=== PATIENT | female | born 1950 | race Caucasian/White ===

== ENCOUNTER 2024-06-13 09:11 | Day surgery (SDC) | payer MEDICARE, SELFPAY ==
--- OUTSIDE RECORDS SUMMARY | 2024-06-12 14:36 | XMS_ITS ---
Author Organization [facility] Address Unknown Problems Problem Status Start Date End Date ANXIETY DISORDER, UNSPECIFIE D (Primary) (F41.9 - ICD-10-CM) ACTIVE 01/28/2023 ACUTE POSTHEMORRHAGIC ANEMIA (Primary) (D62 - ICD-10-CM) RESOLVED 08/19/2022 01/15/2023 HISTORY OF FALLING (Z91.81 - ICD-10-CM) ACTIVE 0 08/19/2022 PRESSURE ULCER OF SACRAL REG ION, UNSPECIFIED STAGE (L89.159 - ICD-10-CM) RESOLVED 03/31/2023 04/18/2023 MUSCLE WEAKNESS (GENERALIZED) (M62.81 - ICD-10-CM) ACT JOSEPH 08/19/2022 DIFFICULTY IN WALKING, NOT E LSEWHERE CLASSIFIED (R26.2 - ICD-10-CM) ACTIVE 04/04/2023 UNSPECIFIED DEMENTIA, SEVERE , WITHOUT BEHAVIORAL DISTURBANCE, PSYCHOTIC DISTURBANCE, MOOD DISTURBANCE, AND ANXIETY (F03.C0 - ICD-10-CM) ACTIVE 04/18/2023 PRESSURE ULCER OF SACRAL REG ION, UNSPECIFIED STAGE (L89.159 - ICD-10-CM) RESOLVED 03/31/2023 04/18/2023 SOLITARY PULMONARY NODULE (R91.1 - ICD-10-CM) ACTIVE 02/16/2023 VASCULAR DEMENTIA, UNSPECIFI ED SEVERITY, WITH PSYCHOTIC DISTURBANCE (F01.52 - ICD-10-CM) ACTIVE 01/28/2023 DYSPHAGIA, ORAL PHASE (R13.11 - ICD-10-CM) ACTIVE 11/24/2022 UNSPECIFIED CATARACT (H26.9 - ICD-10-CM) ACTIVE 11/07/2022 DISSECTION OF THORACIC AORTA , UNSPECIFIED (I71.019 - ICD-10-CM) ACTIVE 08/19/2022 UNSTEADINESS ON FEET (R26.81 - ICD-10-CM) ACTIVE 08/19/2022 ALTERED MENTAL STATUS, UNSPE CIFIED (R41.82 - ICD-10-CM) ACTIVE 08/19/2022 OTHER SPECIFIED DISORDERS OF ADRENAL GLAND (E27.8 - ICD-10-CM) ACTIVE 08/19/2022 UNSPECIFIED ABNORMALITIES OF GAIT AND MOBILITY (R26.9 - ICD-10-CM) ACTIVE 08/19/2022 HYPOTHERMIA, NOT ASSOCIATED WITH LOW ENVIRONMENTAL TEMPERATURE (R68.0 - ICD-10-CM) RESOLVED 08/19/2022 02/17/20 HYPEROSMOLALITY AND HYPERNATREMIA (E87.0 - ICD-10-CM) RESOLVED 08/19/2022 02/16/2023 HYPOKALEMIA (E87.6 - ICD-10-CM) RESOLVED 02/16/2023 HYPOTENSION, UNSPECIFIED (I95.9 - ICD-10-CM) RESOLVED 08/19/2022 02/16/2023 OTHER ACUTE KIDNEY FAILURE (N17.8 - ICD-10-CM) RESOLVE D 08/19/2022 02/16/2023 HYPOMAGNESEMIA (E83.42 - ICD-10-CM) RESOLVED 08/1902/16/2023 DEHYDRATION (E86.0 - ICD-10-CM) RESOLVED 02/16/2023 PRESSURE ULCER OF SACRAL REG ION, UNSPECIFIED STAGE (L89.159 - ICD-10-CM) RESOLVED 08/19/2022 02/16/2023 ABNORMAL FINDINGS ON DIAGNOS TIC IMAGING OF LIVER AND BILIARY TRACT (R93.2 - ICD-10-CM) RESOLVED 08/19/20222023 OTHER ESOPHAGITIS WITHOUT BL EEDING (K20.80 - ICD-10-CM) RESOLVED 08/19/2022 04/18/2023 OTHER SYMPTOMS AND SIGNS INV OLVING COGNITIVE FUNCTIONS AND AWARENESS (R41.89 - ICD-10-CM) ACTIVE 08/19/2022 PERSONAL HISTORY OF PULMONAR Y EMBOLISM (Z86.711 - ICD-10-CM) RESOLVED 08/19/2022 05/19/2023 Encounters Encounter Performer Performer Role Encounter Diagnoses Location Date Discharge - Discharged / Transferred to [facility] - shelter [facility] 08/19/2022 07:46 pm EDT - 08/10/2023 01:22 pm EDT Immunizations Vaccine Date Influenza 02/08/2023 11:30 am EDT TB 2 Step Mantoux Skin Test 08/30/2022 0 5:00 pm EDT Prevnar 20 Pneumococcal conjugate (PCV20 ) 05/31/2023 10:31 am EST SARS-COV-2 (COVID-19 BOOSTER) 03/24/2023 10:00 am EST Social History
--- OUTSIDE RECORDS SUMMARY | 2024-06-12 14:36 | XMS_ITS | Clinical Summary ---
Author Organization [facility] Facility Address [address] [place] [address] Care Team Providers Care Industrial Chemist Name Role Phone Unavailable Primary Care Provider Unavailabl e Social History Tobacco Use Types Packs/Day Years Used Date Smoking Tobacco: Never Assessed Comments Unknown Sex and Gender Information Value Date Recorded Sex Assigned at Not on file Legal Sex Female 10:43 AM EDT Gender Identity Not on file Sexual Orientation Not on file Plan of Treatment Health Maintenance Due Date Last Done Comments Breast Cancer Screening 1950 Colorectal Cancer Screening: Annual FOBT 2000 Colorectal Cancer Screening: Colonoscopy 2000 Colorectal Cancer Screening: Sigmoidoscopy 2000 Pneumococcal Vaccine: 65+ Ye ars (1 of 1 - PCV) 2016 Influenza Vaccine (#1) 2023 Hepatitis B Vaccine Aged Out No longe r eligible based on patient's age to complete this topic Insurance AETNA AETNA
--- OUTSIDE RECORDS SUMMARY | 2024-06-12 14:36 | XMS_ITS ---
Author Name [facility] Organization Unknown Results Test Name/Text Value Interpretation Date Range Source ICD-10 CODES Normal [id number] [facility] UCONNPATH LAB AP GROSS DESCRIPTION Received in formalin. Dimensions 3 x 3 x 4 mm, and submitted in 1 cassette. Also received is a vial of tissue transport medium (Channel M) containing a biopsy specimen measuring 3 x 3 x 2 mm. Tissue was washed in phosphate buffered saline and then embedded in OCT for immunofluorescent studies. Tissue was frozen, cut at 5 microns, and stained with fluorescein-labeled antibody to human IgG, IgM, IgA, C3 and fibrinogen. Normal [facility] LAB AP CLINICAL INFORMATION Scattered pink macules and papules with scale on face, back, grouping of small pink macules without scale on left distal leg, and scattered pink macules and papules with scale on face, back, grouping of small pink macules without scale on left distal leg, no lesions on mucosal surfaces, no lesions on palms; dermatitis unspecified vs hypersensitivity reaction vs pemphigus vulgaris Normal [facility]
--- NOTE | ~2024-06-13 | FL_ITS ---
FLUOROSCOPIC GUIDED LUMBAR PUNCTURE INDICATION: Cerebellar ataxia TECHNIQUE: Risks and benefits and possible complications were discussed with the patient and her guardian and the consent form was signed. Patient was placed prone on the fluoroscopy table. The back was prepped and draped in routine sterile fashion. Betadine was used as a skin antiseptic. Utilizing fluoroscopic guidance, the L2-3 level was accessed with a 22 gauge Long spinal needle and clear CSF fluid obtained. Opening pressure was 10 cm H2O. 8 cc of fluid was sent for analysis. The needle was removed without immediate complications. Total fluoroscopy time: 0.6 min FL/FL guided lumbar puncture LP IMPRESSION: Successful fluoroscopic guided lumbar puncture at L2-L3. This procedure was performed by Nirmal Lopez PA-C and supervised by Dr. Day. Electronically signed by: Andrew Day MD 06/13/2024 04:15 PM [facility] [place]
[2024-06-13 10:42] VITALS: BMI 28.3
[2024-06-13 11:55] VITALS: BP 121/76; PULSE 53; RESP 16; TEMP 36.8; O2SAT 97
[2024-06-13 12:25] VITALS: BP 119/70; PULSE 60; RESP 16; O2SAT 95
[2024-06-13 12:40] VITALS: BP 125/70; PULSE 57; RESP 16; TEMP 36.9; O2SAT 95
[2024-06-13 12:45] LABS: CSF Appearance Clear, Colorless; CSF Tube # 1
[2024-06-13 12:56] LABS: Glucose CSF 60 mg/dL; Total Protein CSF 45.1 mg/dL (15-45)
[2024-06-13 14:10] LABS: Appearance CSF CLEAR; CSF Tube # 4; Color CSF COLORLESS; Lymphocytes CSF 100 %; Red Blood Cell CSF 0 MM*3; White Blood Cell CSF 2 MM*3
== END 2024-06-13 12:53 | disposition home or self-care (01) ==
PROVIDERS: Physician Assistant Surgical; Visit Provider Psychiatry & Neurology Neurology
PROC: 009U3ZZ Drainage of Spinal Canal, Percutaneous Approach (ICD-10-PCS; CPT 62270; principal; 2024-06-13 11:00)
DX: G11.9 Hereditary ataxia, unspecified (principal); G32.81 Cerebellar ataxia in diseases classified elsewhere; F01.50 Vascular dementia, unspecified severity, without behavioral disturbance, psychotic disturbance, mood disturbance, and anxiety; R83.6 Abnormal cytological findings in cerebrospinal fluid; Z99.3 Dependence on wheelchair; R32 Unspecified urinary incontinence; Z87.440 Personal history of urinary (tract) infections; Z86.19 Personal history of other infectious and parasitic diseases; Z79.01 Long term (current) use of anticoagulants; Z79.899 Other long term (current) drug therapy
CPT/HCPCS: 62328; 82945; 84157; 87015; 87070; 87205; 89051; J2003; Q9967

== ENCOUNTER → 2024-06-13 11:20 | Outpatient (BNV) | payer MEDICARE, SELFPAY | PROVIDERS: Visit Provider Physician Assistant Surgical | DX: F01.50 Vascular dementia, unspecified severity, without behavioral disturbance, psychotic disturbance, mood disturbance, and anxiety (principal); G32.81 Cerebellar ataxia in diseases classified elsewhere | CPT/HCPCS: 62328 ==

== ENCOUNTER 2025-04-09 10:53 | Outpatient (AMB) | payer MEDICARE, SELFPAY ==
--- NOTE | 2025-04-09 11:23 | MHC.OFFVIS ---
Intake Visit Reasons: 6 months dementia Accompanied by: Family/Other Allergies No Known Allergies Allergy (Verified 04/09/25 11:30) Medication List - Last Reconciled 04/09/25 by Corrie Devi CNP apixaban (Eliquis) 5 mg PO BID atorvastatin 10 mg PO DAILY mirtazapine 15 mg PO BEDTIME pantoprazole 40 mg PO BID HPI Comments Details: She was doing okay. She was in assisted living memory care unit. She was working with PT and OT about 3x/week. Transfers with 1 assist, no falls. Memory has been stable. Sleep was okay. Mood was okay. Gets PT and OT, walks on parallel bars about 10 steps. Transfers with 1 assist. Needs help with showering. She started with a gait problem around 05/2022 when she started using a walker. Previously, had been in and out of nursing facilities and rehabilitation. She developed a UTI and shingles infection in 12/2023, and lost the ability to walk since then.?She initially appeared to have significant dementia, but seems much improved since 08/08/24 visit. She also has urinary incontinence. 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 Atrial fibrillation AAA (abdominal aortic aneurysm) TIA (transient ischemic attack) Vascular dementia Surgical History (Updated 06/13/24 @ 10:42 by Mabel Wilkins RN) S/P LASIK surgery of both eyes Review of Systems Const Denies chills, Denies daytime sleepiness, Denies difficulty sleeping, Denies fatigue, Denies fever(s), Denies frequent falls, Denies headache(s), Denies increased appetite, Denies poor appetite, Denies snoring, Denies weakness, Denies weight gain and Denies weight loss Eyes Denies loss of vision ENT Denies vertigo, Denies dizziness, Denies headache(s) and Denies neck pain Card Denies chest pain at rest, Denies chest pain with activity, Denies syncope, Denies leg edema, Denies palpitations, Denies dyspnea and Denies dyspnea on exertion Resp Denies cough, Denies dyspnea, Denies dyspnea on exertion and Denies snoring GI Denies abdominal pain, Denies constipation, Denies heartburn, Denies diarrhea and Denies nausea Denies urinary frequency, Reports urinary incontinence and Denies urinary urgency Musc Reports abnormal gait (balance difficulty), Denies back pain, Denies myalgias, Denies arthralgias, Denies neck pain, Denies numbness and Denies tingling Neuro Reports abnormal gait (balance difficulty), Denies vertigo, Denies dizziness, Denies syncope, Denies frequent falls, Denies headache(s), Denies lack of coordination, Denies loss of vision, Denies memory loss, Denies numbness, Denies Other visual disturbances, Denies restless legs, Denies seizure-like activity, Denies tingling, Denies paresthesias, Denies tremor(s) and Denies weakness Psych Denies anxiety, Denies depression, Denies auditory hallucinations, Denies memory loss and Denies visual hallucinations Endo Denies fatigue and Denies palpitations Physical Exam Const Other: General Appearance:? normal, in no acute distress. Heart:? S1, S2 normal, no murmurs. Lungs:? clear anteriorly and posteriorly. Musculoskeletal:? normal. Extremities:? no edema. Psych:? alert, as below. Neuro Other: Abnormal Neurological Findings:?Marked appendicular ataxia LE > UE. Wheelchair bound. Downward nystagmus on lateral gaze. Mental Status: alert, as below. Cranial Nerves: Pupils are equal, round, and reactive to light. External ocular muscles are intact with downward nystagmus on lateral gaze. Visual hoff are full, slight bilateral proptosis and lid retraction. Face is symmetrical, no facial weakness or droop. Facial sensations are normal. Tongue protrudes in midline. Palate elevates symmetrically. Shoulder shrugging is normal Motor Examination: Normal muscle tone, bulk and strength. No atrophy or fasciculations. No drift of the extended upper extremities. DTR 2+. Plantars are flexor. Sensory Exam: Normal light touch, temperature, pinprick, vibration, and joint-position sensations. Rhomberg sign is absent. Coordination: Marked ataxia. FTN, mbzf-guuh-zuel, JIMMIE clearly abnormal with significant dysmetria or past pointing. Gait Exam: Wheelchair bound, unable to stand unsupported or walk. Cerebellar Signs: Ifpqcy-[id number] with moderate dysmetria and dlvc-ng-hfea with marked dysmetria. Extrapyramidal System: No tremor, rigidity with normal facial expressions. No bradykinesia. No bradyphrenia. Normal arm swing and posture. No propulsion or retropulsion. Speech: Normal. MMSE Level of Consciousness: Alert. Orientation: Knows correct year, month, date, and season. Not day. Knows correct city, and state. Not county. Knows correct location and floor. Registration: Able to register 3 objects. Attention: Serial 7's performed accurately to 93. Recall: Able to recall 2 out of 3 objects. Language: Normal spontaneous speech, fluency, repetition, naming, comprehension, reading, and writing. Total Score: 23/30. Results Reviewed Results Reviewed: 03/18/24 MRI reviewed: shows atrophy and white matter microvacsular changes. Profound cerebellar atrophy especially vermian Spinal fluid was normal. Assessment & Plan Assessment & Plan (1) Cerebellar ataxia: Code(s): G11.9 - Hereditary ataxia, unspecified Category: Medical Plan: Continue PT/OT. (2) Vascular dementia: Code(s): F01.50 - Vascular dementia, unspecified severity, without behavioral disturbance, psychotic disturbance, mood disturbance, and anxiety Category: Medical Qualifiers: Dementia severity: unspecified severity Dementia behavioral or psychological symptom: unspecified whether behavioral, psychotic, or mood disturbance or anxiety Qualified Code(s): F01.50 - Vascular dementia, unspecified severity, without behavioral disturbance, psychotic disturbance, mood disturbance, and anxiety Plan Follow up in 6 months or sooner as needed. Coding Level of Care Code Est Pt Level 4 (29323) Diagnoses Cerebellar ataxia G11.9 Vascular dementia, unspecified dementia severity, unspecified whether behavioral, psychotic, or mood disturbance or anxiety F01.50 Dementia severity: unspecified severity Dementia behavioral or psychological symptom: unspecified whether behavioral, psychotic, or mood disturbance or anxiety
--- OUTSIDE RECORDS SUMMARY | 2025-04-09 12:14 | XMS_ITS | Clinical Summary ---
Author Organization [facility] Facility Address [address] [place] [address] Care Team Providers Care Maintenance Of Way Clerk Name Role Phone Unavailable Primary Care Provider [...] Colorectal Cancer Screening: Sigmoidoscopy 2000 Pneumococcal Vaccine: 50+ Ye ars (1 of 1 - PCV) 2001 Influenza Vaccine (#1) 2024 Hepatitis B Vaccine Aged Out No longe r eligible based on patient's age to complete this topic Insurance Aetna Commercial Aetna Commercial
--- OUTSIDE RECORDS SUMMARY | 2025-04-09 12:14 | XMS_ITS ---
Author Organization [facility] Care Team Providers Care Electronics Detail Draftsperson Name Role Phone Qi Claudio Unavailable Unavailable Niraj Mobley Unavailable Unavailable Gaye Alonso Unavailable Unavailable Winston Mcleod Unavailable Unavailable Michelle Schwarz Unavailable Unavailable Jese Duke Unavailable Unavailable Allergies and adverse reactions No Known Allergies Care Team Name Role Address Phone Organization Dates Niraj Mobley PCP [address], [place], [address], [place] (Office): [facility] 08/19/2022 - 08/10/2023 Qi Claudio [address] [facility], [place], [address], [place] (Office): [facility] 08/19/2022 - 08/10/2023 Gaye Alonso [address] [facility], [place], [address], [place] (Office): [facility] 08/19/2022 - 08/10/2023 Winston Mcleod [address] [place] [address], [address], [facility] (Office): [facility] 08/19/2022 - 08/10/2023 Michelle Schwarz [address] [place], [address], [place] (Office): [facility] 08/19/2022 - 08/10/2023 Jese Duke [address] [place] [address], [place], [address], [place] (Office): : [facility] 08/19/2022 - 08/10/2023 Immunizations Immunization Status Vaccine Details Vaccine Code CodeSystem Date Notes Influenza completed Influenza, split virus, trivalent, injectable, contains preservative lotNumber: [id number] expiry: 09/16/2023 Mfg: [employer] Given 0.5 ml Left Deltoid intramuscularly 141 CVX created date: 02/08/2023 consent date: 02/08/2023 administer ed date: 02/08/2023 TB 2 Step Mantoux Skin Test completed tuberculin skin test; unspecified formulation lotNumber: [id number] expiry: 09/23/2024 Mfg: Tubersol. Given 0.1 ml Right Forearm intradermally Step 1 of Multi-step 98 CVX created date: 08/31/2022 consent date: 08/30/2022 administer ed date: 08/30/2022 Educated by Aly Riley on 08/30/2022 Prevnar 20 Pneumococcal conjugate (PCV20) completed Pneumococcal conjugate vaccine 20-valent (PCV20), polysaccharide [id number] conjugate, adjuvant, preservative free lotNumber: [id number] expiry: 06/07/2023 Mfg: [employer] Given 0.5 ml Left Deltoid intramuscularly 216 CVX created date: 05/31/2023 consent date: 05/31/2023 administer ed date: 05/31/2023 temp 97.8 SARS-COV-2 (COVID-19 BOOSTER) completed SARS-COV-2 (COVID-19) vaccine, mRNA, spike protein, LNP, bivalent, preservative free, 50 mcg/0.5 mL or 25 mcg/0.25 mL dose lotNumber: [id number] expiry: 07/14/2023 Mfg: Moderna Given 0.5 ml Left Deltoid intramuscularly 229 CVX created date: 03/24/2023 consent date: 03/24/2023 administer ed date: 03/24/2023 Mental Status Section Date Assessment Total Score Description 08/10/2023 BIMS 07 severe cognitiv e impairment CAM 0 No delirium ind icated PHQ-9 00 05/19/2023 BIMS 12 moderate cognit nina impairment CAM 0 No delirium ind icated PHQ-9 00 Insurance Providers Coverage Status Coverage Type Relationship to Subscriber Member Identifier Subscriber Identifier Group Identifier Payer Identifier and Other information 2022 Code: 51 Code System OID:[id number] .[id number]. 5 Code System Name: Source of Payment Typology (PHDSC) Display: Managed Care (Private) Translation: Code: HM Code System: OID:[id number] .[id number]. 1336 Code System Name: Insurance Type Code ([id number]) Display Name: Health Maintenance Organization (HMO) Plan Code: SELF Code System Name: HL7 RoleCode Code System OID:[id number] .920493.5.111 Display Name: Self [id number] Root: [id number] Payer Identifier: Root: [id number] Extension: [id number] Payer Name: Aetna Address: [facility] [id number] City: [place] State: [place] Country: [facility] Telecom: [phone] Code: 81 Code System OID:[id number] .[id number]. 5 Code System Name: Source of Payment Typology (PHDSC) Display: Self Pay Translation: Code: 09 Code System: OID:[id number] .856207.6.255. 1336 Code System Name: Insurance Type Code ([id number]) Display Name: Self-pay Problems Problem # Description Date of onset Resolved Date Code CodeSystem Concern Status 1 UNSPECIFIED DEMENTIA, SEVERE, WITHOUT BEHAVIORAL DISTURBANCE, PSYCHOTIC DISTURBANCE, MOOD DISTURBANCE, AND ANXIETY 04/18/[address] active 2 DIFFICULTY IN WALKING, NOT ELSEWHERE CLASSIFIED 04/04/[address] active 3 PRESSURE ULCER OF SACRAL REGION, UNSPECIFIED STAGE 03/31/2004/18/[address] completed 4 PRESSURE ULCER OF SACRAL REGION, UNSPECIFIED STAGE 03/31/2004/18/[address] completed 5 SOLITARY PULMONARY NODULE 02/17/[address] active 6 ANXIETY DISORDER, UNSPECIFIED 01/29/[address] active 7 VASCULAR DEMENTIA, UNSPECIFIED SEVERITY, WITH PSYCHOTIC DISTURBANCE 01/29/[address] active 8 DYSPHAGIA, ORAL PHASE 11/25/[address] active 9 UNSPECIFIED CATARACT 11/08/[address] active 10 ABNORMAL FINDINGS ON DIAGNOSTIC IMAGING OF LIVER AND BILIARY TRACT 08/20/1904/18/[address] completed 11 ACUTE POSTHEMORRHAGIC ANEMIA 08/20/1901/15/[address] completed 12 ALTERED MENTAL STATUS, UNSPECIFIED 08/20/[address] active 13 DEHYDRATION 08/20/1902/16/[address] completed 14 DISSECTION OF THORACIC AORTA, UNSPECIFIED 08/20/[address] active 15 HISTORY OF FALLING 08/20/[address] active 16 HYPEROSMOLALITY AND HYPERNATREMIA 08/20/1902/16/[address] completed 17 HYPOKALEMIA 08/20/1902/16/[address] completed 18 HYPOMAGNESEMIA 08/20/1902/16/[address] completed 19 HYPOTENSION, UNSPECIFIED 08/20/1902/16/[address] completed 20 HYPOTHERMIA, NOT ASSOCIATED WITH LOW ENVIRONMENTAL TEMPERATURE 08/20/1902/16/[address] completed 21 MUSCLE WEAKNESS (GENERALIZED) 08/20/[address] active 22 OTHER ACUTE KIDNEY FAILURE 08/20/1902/16/[address] completed 23 OTHER ESOPHAGITIS WITHOUT BLEEDING 08/20/19 23 04/18/[address] completed 24 OTHER SPECIFIED DISORDERS OF ADRENAL GLAND 08/20/[address] active 25 OTHER SYMPTOMS AND SIGNS INVOLVING COGNITIVE FUNCTIONS AND AWARENESS 08/20/[address] active 26 PERSONAL HISTORY OF PULMONARY EMBOLISM 08/20/1905/19/[address] completed 27 PRESSURE ULCER OF SACRAL REGION, UNSPECIFIED STAGE 08/20/1902/16/[address] completed 28 UNSPECIFIED ABNORMALITIES OF GAIT AND MOBILITY 08/20/[address] active 29 UNSTEADINESS ON FEET 08/20/[address] active Reason for Referral No Reasons for Referral Entered Social History Social History Observation Description Start Date End Date Code Code System Current Smoking Status Tobacco smoking consumption unknown 732497306 SNOMED CT Sex Assigned At Female 1950 52324-5 [facility] Gender Identity Sexual Orientation Vital Signs Code Code System Vitals Name Values and Units Timing Information 9279-1 [facility] Respiratory Rate Value=18.0 Units=/m in 08/10/2023 8462-4 [facility] Blood Pressure-Diastolic Value=92 Un its=mmHg 08/10/2023 8480-6 [facility] Blood Pressure-Systolic Ahemd=663 Un its=mmHg 08/10/2023 8310-5 [facility] Body Temperature Value=98.5 Units= F 08/10/2023 8867-4 [facility] Heart rate Value=76.0 Units=/min 92380-4 [facility] O2 % BldC Oximetry Value=97.0 Units= % 08/10/2023 42569-4 [facility] Pain Level Value=0.0 08/10/2023 18582-1 [facility] Weight Pkbph=874.0 Units=Lbs 8302-2 [facility] Height Value=64.6 Units=Inches 08/20/2022
== END 2025-04-09 11:44 | disposition home or self-care (01) ==
LOC: HO.HSM 10:53
PROVIDERS: PCP Internal Medicine; Visit Provider Registered Nurse
DX: G11.9 Hereditary ataxia, unspecified (principal); F01.50 Vascular dementia, unspecified severity, without behavioral disturbance, psychotic disturbance, mood disturbance, and anxiety
CPT/HCPCS: 99214

== ENCOUNTER → 2025-04-09 10:53 | Outpatient (BNVA) | payer MEDICARE, SELFPAY | PROVIDERS: PCP Internal Medicine; Visit Provider Registered Nurse | DX: G11.9 Hereditary ataxia, unspecified (principal); F01.50 Vascular dementia, unspecified severity, without behavioral disturbance, psychotic disturbance, mood disturbance, and anxiety | CPT/HCPCS: 99212 ==